=== PATIENT | female | born 1995 | race Caucasian/White ===

== ENCOUNTER 2021-03-12 08:10 | Emergency (ER) | payer BC ==
[2021-03-12 08:14] VITALS: BP 122/83; PULSE 81; TEMP 98; BMI 24.4
[2021-03-12] MEDS ORDERED: FLUORESCEIN NA 1 EA STRIP ONE (09:02)
[2021-03-12] MEDS ORDERED: IBUPROFEN 400 MG TABLET (FP) PO ONE ×2 (09:14→09:16)
== END 2021-03-12 10:00 | disposition home or self-care (01) ==
LOC: JER 08:10 → JERFT 08:10
DX: S05.02XA Injury of conjunctiva and corneal abrasion without foreign body, left eye, initial encounter (principal)
CPT/HCPCS: 99283-25